=== PATIENT | female | born 1995 | race Caucasian/White ===

== ENCOUNTER 2018-02-21 23:42 | Emergency (ER) | payer BC ==
--- NOTE | 2018-02-21 23:44 | ER Report ---
History and Physical Time Seen By MD: 23:44 HPI/ROS CHIEF COMPLAINT: I think i have uti HISTORY OF PRESENT ILLNESS: PT states two hours ago started with the urge to urinate. Pt states she has been having dysuria, frequency and only going small amounts at a time. Pt has hx of uti in the past. Pt became concerned when she started urinating what looked like blood. Pt had pelvic pressure and also feels pain across her lower back. no fevers. no nausea or vomiting. REVIEW OF SYSTEMS: Constitutional: No fever, no chills. Eyes: No discharge. ENT: No sore throat. Cardiovascular: No chest pain, no palpitations. Respiratory: No cough, no shortness of breath. Gastrointestinal: No abdominal pain, no vomiting. Genitourinary: + hematuria, + dysuria, +frequency Musculoskeletal: + back pain. Skin: No rashes. Neurological: No headache. Allergies: Coded Allergies: Penicillins (Verified Allergy, Intermediate, HIVES, 02/21/18) Cephalosporins (Verified Allergy, Unknown, HIVES, 02/21/18) Home Meds Reported Medications Loratadine (CLARITIN) 10 Mg Capsule, 10 MG PO DAILY, CAPSULE 02/21/18 Past Medical/Surgical History Pmhx: UTI Pshx: TA Reviewed Nurses Notes: Yes Hx Smoking: No Hx Alcohol Use: Yes (occasional) Constitutional Vital Sign - Last 24 Hours 02/21/18 23:47 Temp 97.7 Pulse 87 Resp 14 B/P (MAP) 139/87 Pulse Ox 91 O2 Delivery Room Air Physical Exam General Appearance: The patient is alert, has no immediate need for airway protection and no signs of toxicity. Eyes: Pupils equal and round no pallor or injection, EOMI ENT: no pharyngeal erythema or exudates, Mucous membranes are moist Respiratory: There are no retractions, lungs are clear to auscultation. Cardiovascular: Regular rate and rhythm. pulses are equal and symmetrical Gastrointestinal: Abdomen is soft with mild pelvic tenderness, no masses, bowel sounds normal, no guarding, no rigidity or rebound Neurological: Cranial nerves II-XII grossly intact, no sensory or motor loss Skin: Warm and dry, no rashes. Musculoskeletal: Neck is supple non tender, no vertebral tenderness, no cva tenderness on right or left with palpation Extremities are nontender, nonswollen and have full range of motion. DIFFERENTIAL DIAGNOSIS: After history and physical exam differential diagnosis was considered for uti, pylonephritis, kidney stone Medical Decision Making Data Points Laboratory Hematology Test 02/21/18 23:46 Urine Color Straw Urine Clarity Clear Urine pH 6.0 pH (4.8-9.5) Urine Specific [place] 1.001 Urine Protein Negative mg/dL (NEGATIVE) Urine Glucose (UA) Negative mg/dL (NEGATIVE) Urine Ketones Negative mg/dL (NEGATIVE) Urine Blood Large (NEGATIVE) Urine Nitrite Negative (NEGATIVE) Urine Bilirubin Negative (NEGATIVE) Urine Urobilinogen Negative mg/dL (0.2-1.9) Urine Leukocyte Esterase Moderate (NEGATIVE) Urine RBC 1 /HPF (0-2/HPF) Urine WBC 5 /HPF (0-5/HPF) Urine Squamous Epithelial Cells None /LPF (</=FEW) Urine Bacteria Few /HPF (NONE-FEW) Urine Mucus None /HPF (NONE-FEW) Urine HCG, Qualitative Negative (NEGATIVE) Chemistry Test 02/21/18 23:46 Urine Color Straw Urine Clarity Clear Urine pH 6.0 pH (4.8-9.5) Urine Specific [place] 1.001 Urine Protein Negative mg/dL (NEGATIVE) Urine Glucose (UA) Negative mg/dL (NEGATIVE) Urine Ketones Negative mg/dL (NEGATIVE) Urine Blood Large (NEGATIVE) Urine Nitrite Negative (NEGATIVE) Urine Bilirubin Negative (NEGATIVE) Urine Urobilinogen Negative mg/dL (0.2-1.9) Urine Leukocyte Esterase Moderate (NEGATIVE) Urine RBC 1 /HPF (0-2/HPF) Urine WBC 5 /HPF (0-5/HPF) Urine Squamous Epithelial Cells None /LPF (</=FEW) Urine Bacteria Few /HPF (NONE-FEW) Urine Mucus None /HPF (NONE-FEW) Urine HCG, Qualitative Negative (NEGATIVE) Urinalysis Test 02/21/18 23:46 Urine Color Straw Urine Clarity Clear Urine pH 6.0 pH (4.8-9.5) Urine Specific [place] 1.001 Urine Protein Negative mg/dL (NEGATIVE) Urine Glucose (UA) Negative mg/dL (NEGATIVE) Urine Ketones Negative mg/dL (NEGATIVE) Urine Blood Large (NEGATIVE) Urine Nitrite Negative (NEGATIVE) Urine Bilirubin Negative (NEGATIVE) Urine Urobilinogen Negative mg/dL (0.2-1.9) Urine Leukocyte Esterase Moderate (NEGATIVE) Urine RBC 1 /HPF (0-2/HPF) Urine WBC 5 /HPF (0-5/HPF) Urine Squamous Epithelial Cells None /LPF (</=FEW) Urine Bacteria Few /HPF (NONE-FEW) Urine Mucus None /HPF (NONE-FEW) Urine HCG, Qualitative Negative (NEGATIVE) ED Course/Re-evaluation ED Course PTs has no cva tenderness at this time. No vomtiing. Will start with checking urine for uti. Pt is sexually active. will also add urine preg 02/22/2018 12:09:16 am urine shows leuks and bacteria without squamous cells. will treat wtih abx. Pt is allergic to pcn and ceph so will start with bactrim and send cultures. Decision to Disposition Date: Feb 21, 2018 Decision to Disposition Time: 00:09 Depart Departure Latest Vital Signs Vital Signs Date Time Temp Pulse Resp B/P (MAP) Pulse Ox O2 Delivery O2 Flow Rate FiO2 02/21/18 23:47 97.7 87 14 139/87 91 Room Air Impression: Primary Impression: UTI (urinary tract infection) Condition: Condition Unchanged Disposition: HOME OR SELF-CARE New Scripts Sulfamethoxazole/Trimet 800-160 Mg Tab (BACTRIM DS TABLET) 1 Each Tablet 1 TAB PO Q12H, #14 TAB Prov: JODIE NEELY V DO 02/22/18 Phenazopyridine Hcl (PHENAZOPYRIDINE HCL) 200 Mg Tablet 200 MG PO Q8H PRN for PAIN, #9 TAB Prov: REJI NEELYSA V DO 02/22/18 Patient Instructions: Urinary Tract Infection in Women (ED) Additional Instructions: You have a urine infection. We are starting you on bactrim twice a day. You may use pyridium one every 8 hours as needed for pain with urination. We sent your urine for culture. If for any reason the culture shows resistance to bactrim, we will call you and get you a different antibiotic. Return if symptoms worsen or if fever develops. Problem Qualifiers Primary Impression: UTI (urinary tract infection) Urinary tract infection type: acute cystitis Hematuria presence: with hematuria Qualified Codes: N30.01 - Acute cystitis with hematuria JODIE NEELY DO Feb 21, 2018 23:44
[2018-02-21 23:47] VITALS: BP 139/87
[2018-02-21] MEDS ORDERED: PHENAZOPYRIDINE 200 MG TAB PO ONE (23:55)
[2018-02-21] MEDS ORDERED: LORA10CA3 PO (23:58)
[2018-02-22] MEDS ORDERED: TRIMETH/SULFA DS 160-800MG TAB PO ONE (00:10)
[2018-02-22] MEDS ORDERED: SULF-198 PO (00:11)
[2018-02-22] MEDS ORDERED: PHEN200T32 PO (00:11)
== END 2018-02-22 00:24 | disposition home or self-care (01) ==
LOC: ER 23:46
DX: N30.01 Acute cystitis with hematuria (principal)
CPT/HCPCS: 81001; 81025; 87077; 87088; 87186; 99283

== ENCOUNTER 2018-04-21 17:41 | Emergency (ER) | payer BC ==
[~2018-04-21 17:41] MED LIST: LORA10CA3 PO; PHEN200T32 PO; SULF-198 PO
--- NOTE | 2018-04-21 18:18 | ER Report ---
History and Physical Time Seen By MD: 18:16 Hx. of Stated Complaint: Pt. having left lower back/flank pain and LLQ pain since Friday night. Pain 6/10. Denies nausea or pain with urination. No fevers. HPI/ROS CHIEF COMPLAINT: Abdominal pain HISTORY OF PRESENT ILLNESS: 22 yo female presents to the ED with abdominal pain. States that pain began Friday which started in her left back/flank and then migrated to the LLQ of her abdomen. States that the back pain is a constant ache and the LLQ pain is intermittent and stabbing. 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 Reports that she is sexually active and has an IUD in place. Reports last menstrual period was in November. Denies vaginal pain, odor, discharge or bleeding. Denies difficulty with urination, no urgency, or burning with urination. Denies any recent illness or fevers. Denies N/V/D. Denies SOB, cough, or chest pain. REVIEW OF SYSTEMS: Constitutional: No fever, no chills. Eyes: No discharge. ENT: No sore throat. Cardiovascular: As above. Respiratory: As above. Gastrointestinal: As above. Genitourinary: As above. Musculoskeletal: As above. Skin: No rashes. Neurological: No headache. Allergies: Coded Allergies: Penicillins (Verified Allergy, Intermediate, HIVES, 04/21/18) Cephalosporins (Verified Allergy, Unknown, HIVES, 04/21/18) Home Meds Reported Medications Loratadine (CLARITIN) 10 Mg Capsule, 10 MG PO DAILY, CAPSULE 02/21/18 Discontinued Scripts Sulfamethoxazole/Trimet 800-160 Mg Tab (BACTRIM DS TABLET) 1 Each Tablet, 1 TAB PO Q12H, #14 TAB Prov:LAURORA,JODIE V DO 02/22/18 Phenazopyridine Hcl (PHENAZOPYRIDINE HCL) 200 Mg Tablet, 200 MG PO Q8H PRN for PAIN, #9 TAB Prov:LAURORA,JODIE V DO 02/22/18 Past Medical/Surgical History Patient has a past medical and surgical history of tonsillectomy. Reviewed Nurses Notes: Yes Hx Smoking: No Hx Substance Use Disorder: No Hx Alcohol Use: Yes (occasional) Constitutional Vital Sign - Last 24 Hours 04/21/18 04/21/18 04/21/18 04/21/18 17:47 18:43 18:46 18:51 Temp 98.9 Pulse 101 96 Resp 16 B/P (MAP) 116/75 119/81 (94) Pulse Ox 94 97 95 O2 Delivery Room Air 04/21/18 04/21/18 04/21/18 04/21/18 18:56 19:00 19:01 19:06 Pulse 97 99 98 B/P (MAP) 110/53 (72) Pulse Ox 97 95 96 04/21/18 04/21/18 04/21/18 04/21/18 19:21 19:26 19:30 19:31 Pulse 92 103 95 B/P (MAP) 111/77 (88) Pulse Ox 93 83 95 04/21/18 19:36 Pulse 95 Pulse Ox 95 Physical Exam General Appearance: The patient is alert, has no immediate need for airway protection and no signs of toxicity. Eyes: Pupils equal and round no pallor or injection. ENT, Mouth: Mucous membranes are moist. Respiratory: There are no retractions, lungs are clear to auscultation. Cardiovascular: Regular rate and rhythm. Gastrointestinal: Abdomen is soft , tenderness to the left far quadrant, mild left flank pain. no masses, bowel sounds normal. Neurological: Alert and oriented 4. Moving all extremities. Following all commands. No focal neuro deficits. Skin: Warm and dry, no rashes. Musculoskeletal: Neck is supple non tender. Extremities are nontender, nonswollen and have full range of motion. DIFFERENTIAL DIAGNOSIS: After history and physical exam differential diagnosis was considered for abdominal pain in a female including but not limited to ovarian cyst, pelvic inflammatory disease, ovarian torsion, urinary tract infection, and appendicitis. Medical Decision Making Data Points Result Diagram: 04/21/18 1841 04/21/18 1841 Laboratory Hematology Test 04/21/18 18:33 04/21/18 18:41 Urine Color Yellow Urine Clarity Clear Urine pH 6.0 pH (4.8-9.5) Urine Specific [place] 1.019 Urine Protein Negative mg/dL (NEGATIVE) Urine Glucose (UA) Negative mg/dL (NEGATIVE) Urine Ketones 20 mg/dL (NEGATIVE) Urine Blood Negative (NEGATIVE) Urine Nitrite Negative (NEGATIVE) Urine Bilirubin Negative (NEGATIVE) Urine Urobilinogen Negative mg/dL (0.2-1.9) Urine Leukocyte Esterase Negative (NEGATIVE) Urine RBC <1 /HPF (0-2/HPF) Urine WBC 1 /HPF (0-5/HPF) Urine Squamous Epithelial Cells Many /LPF (</=FEW) Urine Bacteria Few /HPF (NONE-FEW) Urine Mucus None /HPF (NONE-FEW) Urine HCG, Qualitative Negative (NEGATIVE) Red Blood Count 4.70 M/uL (4.17-5.56) Mean Corpuscular Volume 96.3 fL (80.0-96.0) Mean Corpuscular Hemoglobin 32.5 pg (26.0-33.0) Mean Corpuscular Hemoglobin Concent 33.8 g/dL (32.0-36.0) Red Cell Distribution Width 13.3 % (11.5-14.5) Mean Platelet Volume 8.7 fL (7.2-11.1) Neutrophils (%) (Auto) 55.5 % (39.4-72.5) Lymphocytes (%) (Auto) 25.6 % (17.6-49.6) Monocytes (%) (Auto) 16.3 % (4.1-12.4) Eosinophils (%) (Auto) 1.5 % (0.4-6.7) Basophils (%) (Auto) 1.1 % (0.3-1.4) Nucleated RBC Relative Count (auto) 0.1 /100WBC Neutrophils # (Auto) 2.7 K/uL (2.0-7.4) Lymphocytes # (Auto) 1.2 K/uL (1.3-3.6) Monocytes # (Auto) 0.8 K/uL (0.3-1.0) Eosinophils # (Auto) 0.1 K/uL (0.0-0.5) Basophils # (Auto) 0.1 K/uL (0.0-0.1) Nucleated RBC Absolute Count (auto) 0.00 K/uL Sodium Level 138 mmol/L (137-145) Potassium Level 4.0 mmol/L (3.5-5.0) Chloride Level 103 mmol/L (98-107) Carbon Dioxide Level 24 mmol/L (22-31) Blood Urea Nitrogen 13 mg/dl (7-18) Creatinine 0.70 mg/dl (0.52-1.04) Glomerular Filtration Rate Calc > 60.0 Random Glucose 83 mg/dl (75-110) Calcium Level 9.1 mg/dl (8.4-10.2) Chemistry Test 04/21/18 18:33 04/21/18 18:41 Urine Color Yellow Urine Clarity Clear Urine pH 6.0 pH (4.8-9.5) Urine Specific [place] 1.019 Urine Protein Negative mg/dL (NEGATIVE) Urine Glucose (UA) Negative mg/dL (NEGATIVE) Urine Ketones 20 mg/dL (NEGATIVE) Urine Blood Negative (NEGATIVE) Urine Nitrite Negative (NEGATIVE) Urine Bilirubin Negative (NEGATIVE) Urine Urobilinogen Negative mg/dL (0.2-1.9) Urine Leukocyte Esterase Negative (NEGATIVE) Urine RBC <1 /HPF (0-2/HPF) Urine WBC 1 /HPF (0-5/HPF) Urine Squamous Epithelial Cells Many /LPF (</=FEW) Urine Bacteria Few /HPF (NONE-FEW) Urine Mucus None /HPF (NONE-FEW) Urine HCG, Qualitative Negative (NEGATIVE) White Blood Count 4.8 k/uL (4.5-11.0) Red Blood Count 4.70 M/uL (4.17-5.56) Hemoglobin 15.3 g/dL (12.0-16.0) Hematocrit 45.2 % (34.0-47.0) Mean Corpuscular Volume 96.3 fL (80.0-96.0) Mean Corpuscular Hemoglobin 32.5 pg (26.0-33.0) Mean Corpuscular Hemoglobin Concent 33.8 g/dL (32.0-36.0) Red Cell Distribution Width 13.3 % (11.5-14.5) Platelet Count 188 K/uL (150-450) Mean Platelet Volume 8.7 fL (7.2-11.1) Neutrophils (%) (Auto) 55.5 % (39.4-72.5) Lymphocytes (%) (Auto) 25.6 % (17.6-49.6) Monocytes (%) (Auto) 16.3 % (4.1-12.4) Eosinophils (%) (Auto) 1.5 % (0.4-6.7) Basophils (%) (Auto) 1.1 % (0.3-1.4) Nucleated RBC Relative Count (auto) 0.1 /100WBC Neutrophils # (Auto) 2.7 K/uL (2.0-7.4) Lymphocytes # (Auto) 1.2 K/uL (1.3-3.6) Monocytes # (Auto) 0.8 K/uL (0.3-1.0) Eosinophils # (Auto) 0.1 K/uL (0.0-0.5) Basophils # (Auto) 0.1 K/uL (0.0-0.1) Nucleated RBC Absolute Count (auto) 0.00 K/uL Glomerular Filtration Rate Calc > 60.0 Calcium Level 9.1 mg/dl (8.4-10.2) Urinalysis Test 04/21/18 18:33 Urine Color Yellow Urine Clarity Clear Urine pH 6.0 pH (4.8-9.5) Urine Specific [place] 1.019 Urine Protein Negative mg/dL (NEGATIVE) Urine Glucose (UA) Negative mg/dL (NEGATIVE) Urine Ketones 20 mg/dL (NEGATIVE) Urine Blood Negative (NEGATIVE) Urine Nitrite Negative (NEGATIVE) Urine Bilirubin Negative (NEGATIVE) Urine Urobilinogen Negative mg/dL (0.2-1.9) Urine Leukocyte Esterase Negative (NEGATIVE) Urine RBC <1 /HPF (0-2/HPF) Urine WBC 1 /HPF (0-5/HPF) Urine Squamous Epithelial Cells Many /LPF (</=FEW) Urine Bacteria Few /HPF (NONE-FEW) Urine Mucus None /HPF (NONE-FEW) Urine HCG, Qualitative Negative (NEGATIVE) EKG/Imaging Imaging Patient: Micheline Hinton : 1995 Visit[facility]Account:[id number] [facility]BD[facility] PELVIS W/ CON Additional pertinent History: Abdominal pain TECHNIQUE: Spiral scan was through the abdomen and pelvis during injection of nonionic iodinated intravenous contrast. One of the following dose optimization techniques was utilized in the performance of this exam: Automated exposure control; adjustment of the mA and/or kV according to the patient's size; or use of an iterative reconstruction technique. Specific details can be referenced in the facility's radiology CT exam operational policy. Contrast: 75 mL of IV Isovue-370. COMPARISON STUDIES: none. FINDINGS: Liver / biliary: Homogenous liver. No focal liver lesions. No gallstones. Pancreas: negative Spleen: negative Adrenal glands: negative Kidneys / retroperitoneum: No renal stone or renal obstructive uropathy change. No pyelonephritis Pelvic structures: 3.5 cm left ovarian cyst. Small amount of free fluid in the pelvis. Retroflexed uterus with IUD in the fundus. Bowel / peritoneum / mesenteries: No bowel inflammation. Appendix visualized with no obvious periappendiceal stranding or inflammation. Distal appendix maximally seen measuring 6 mm. Vessels: negative Musculoskeletal / Body wall: negative Lymph node assessment: negative Lower chest: negative IMPRESSION: 1. 3.5 cm left ovarian cyst with small amount of free fluid. Study otherwise unremarkable Report Dictated By: Newton Stevens MD at 04/21/2018 7:34 PM Report E-Signed By: Newton Stevens MD at 04/21/2018 7:46 PM WSN:[email or web address] ED Course/Re-evaluation Clinical Indication for ER IV: IV Access ED Course The patient was admitted to room. A history and physical were obtained. Differential diagnoses were considered. An IV was started. A CBC, CMP were obtained. A UA was collected. Lab studies unremarkable, negative UA. CT of the abdomen pelvis showing a 3.5 cm ovarian cyst on the left, results were reviewed with the patient. Discussed the symptoms she is currently having are consistent with likely ovarian cyst it's rupturing, patient expressed understanding taken ibuprofen and Tylenol as needed. Other questions or concerns and discharged home. Decision to Disposition Date: Apr 21, 2018 Decision to Disposition Time: 19:50 Depart Departure Latest Vital Signs Vital Signs Date Time Temp Pulse Resp B/P (MAP) Pulse Ox O2 Delivery O2 Flow Rate FiO2 04/21/18 19:36 95 95 04/21/18 19:30 111/77 (88) 04/21/18 17:47 98.9 16 Room Air Impression: Primary Impression: Ovarian cyst Condition: Improved Disposition: HOME OR SELF-CARE Referrals: MAGY VEGA [facility] Patient Instructions: Ovarian Cyst (ED) Additional Instructions: No concerning findings on the laboratory studies. The CT scan of your abdomen is showing an ovarian cyst on the left side, does appear to be rupturing, this is likely causing the pain. There were no other concerning findings on the CT scan. I would recommend following up with [facility] or establishing with the following up with an CONSTRUCTION EQUIPMENT MECHANIC within the next week for reevaluation. Be sure to drink plenty of water. Get plenty of rest. Take ibuprofen and/or Tylenol as needed for pain. Return to the emergency department for any other concerns or worsening symptoms. Problem Qualifiers Primary Impression: Ovarian cyst Laterality: left Qualified Codes: N83.202 - Unspecified ovarian cyst, left side [address] PR[employer] SUPPORT CONSULTANT-BC Apr 21, 2018 18:18
[2018-04-21 18:50] LABS: PLATELET COUNT, AUTOMATED 188 K/uL (150-450)
[2018-04-21] MEDS ORDERED: IOPAMIDOL 76% 100 ML INFUS BTL 100 ML ONE (19:14)
[2018-04-21 19:30] VITALS: BP 111/77
--- NOTE | 2018-04-21 19:52 | RADIOLOGY IMAGING REPORT ---
FACILITY: [facility] PATIENT NAME: Micheline Hinton : 1995 MR: [id number] V: [id number] EXAM DATE: ORDERING PHYSICIAN: MAGALYS LANE TECHNOLOGIST: Location: [facility] Patient: Micheline Hinton : 1995 Visit/Account:[id number] Date of Sev[facility]: 04/21/2018 CT ABDOMEN PELVIS W/ CON Additional pertinent History: Abdominal pain TECHNIQUE: Spiral scan was through the abdomen and pelvis during injection of nonionic iodinated in travenous contrast. One of the following dose optimization techniques was utilized in the performance of this exam: Autom ated exposure control; adjustment of the mA and/or kV according to the patient's size; or use of an i terative reconstruction technique. Specific details can be referenced in the facility's radiology C T exam operational policy. Contrast: 75 mL of IV Isovue-370. COMPARISON STUDIES: none. FINDINGS: Liver / biliary: Homogenous liver. No focal liver lesions. No gallstones. Pancreas: negative Spleen: negative Adrenal glands: negative Kidneys / retroperitoneum: No renal stone or renal obstructive uropathy change. No pyelonephritis Pelvic structures: 3.5 cm left ovarian cyst. Small amount of free fluid in the pelvis. Retroflex ed uterus with IUD in the fundus. Bowel / peritoneum / mesenteries: No bowel inflammation. Appendix visualized with no obvious periapp endiceal stranding or inflammation. Distal appendix maximally seen measuring 6 mm. Vessels: negative Musculoskeletal / Body wall: negative Lymph node assessment: negative Lower chest: negative IMPRESSION: 1. 3.5 cm left ovarian cyst with small amount of free fluid. Study otherwise unremarkable Report Dictated By: Newton Stevens MD at 04/21/2018 7:34 PM Report E-Signed By: Newton Stevens MD at 04/21/2018 7:46 PM WSN:[email or web address]
== END 2018-04-21 20:09 | disposition home or self-care (01) ==
LOC: ER 18:02
DX: N83.202 Unspecified ovarian cyst, left side (principal)
CPT/HCPCS: 74177; 81001; 81025; 85025; 99284; Q9967; 82310; 82374; 82435; 82565; 82947; 84132; 84295; 84520